=== PATIENT | male | born 1970 | race Hispanic/Latino ===

== ENCOUNTER 2017-03-20 16:58 | Emergency (ER) | payer OTHER ==
[2017-03-20 17:07] VITALS: BP 128/77; PULSE 94; RESP 18; TEMP 98.5; O2SAT 97
--- NOTE | 2017-03-20 17:27 | ED PDOC ---
HPI: CCC, URI, Sore Throat Time Seen by Provider: 03/20/17 17:10 Chief Complaint (Nursing): ENT Problem Chief Complaint (Provider): ENT Problem History Per: Patient History/Exam Limitations: no limitations Have you had recent travel within the past 21 days to any of the following countries: [place], [place], [place] or [place]?: No Onset/Duration Of Symptoms: Days (Two Days) Current Symptoms Are (Timing): Still Present Location Of Pain: Throat Associated Symptoms: Sore Throat. denies: Fever Severity: Mild Additional Complaint(s): 46 y/o male patient presenting to the ED with throat pain. PT states the pain has been ongoing for 2 days and he has not taken any medications for the pain. Denies fever/chills. Past Medical History Reviewed: Historical Data, Nursing Documentation, Vital Signs Vital Signs: Last Vital Signs Temp 98.5 F 03/20/17 17:04 Pulse 94 H 03/20/17 17:04 Resp 18 03/20/17 17:04 BP 128/77 03/20/17 17:04 Pulse Ox 97 03/20/17 17:35 - Medical History PMH: No Chronic Diseases - Surgical History Surgical History: No Surg Hx - Family History Family History: States: No Known Family Hx - Living Arrangements Living Arrangements: With Family - Social History Current smoker - smoking cessation education provided: No Alcohol: Occasional Drugs: Denies - Home Medications Home Medications: Ambulatory Orders Medication Instructions Recorded Azithromycin [Zithromax] 250 mg PO DAILY #6 cap 04/29/15 Prednisone 10 mg PO TID #15 tab 04/29/15 - Allergies Allergies/Adverse Reactions: Allergies Allergy/AdvReac Type Severity Reaction Status Date / Time No Known Allergies Allergy Verified 03/20/17 17:04 Review of Systems ROS Statement: Except As Marked, All Systems Reviewed And Found Negative Constitutional: Negative for: Fever ENT: Positive for: Throat Pain Physical Exam - Reviewed Nursing Documentation Reviewed: Yes Vital Signs Reviewed: Yes - Physical Exam Appears: Positive for: Non-toxic, No Acute Distress Skin: Positive for: Normal Color, Warm ENT: Positive for: Pharyngeal Erythema (tonsils, soft palate) Neck: Positive for: Normal, Painless ROM, Supple Cardiovascular/Chest: Positive for: Regular Rate, Rhythm. Negative for: Murmur Respiratory: Positive for: Normal Breath Sounds. Negative for: Respiratory Distress Neurologic/Psych: Positive for: Alert, Oriented. Negative for: Motor/Sensory Deficits - ECG O2 Sat by Pulse Oximetry: 97 (RA) Pulse Ox Interpretation: Normal Medical Decision Making Medical Decision Making: Time: 1709 Initial impression: Pharyngeal Erythema Initial plan: --Dexamethasone 10MG --Rapid Strep Group A Antigen Strep Negative Scribe Attestation: Documented by Shakira Galaviz acting as a scribe for SALLIE Naylor MD Scribe Attestation: All medical record entries made by the Scribe were at my direction and personally dictated by me. I have reviewed the chart and agree that the record accurately reflects my personal performance of the history, physical exam, medical decision making, and the department course for this patient. I have also personally directed, reviewed, and agree with the discharge instructions and disposition. Disposition - Clinical Impression Clinical Impression: Viral pharyngitis - Patient ED Disposition Is Patient to be Admitted: No Counseled Patient/Family Regarding: Diagnosis, Need For Followup - Disposition Referrals: [facility] [Outside] Disposition: Routine/Home Disposition Time: 19:08 Condition: GOOD Instructions: Pharyngitis (ED)
== END 2017-03-20 19:24 | disposition home or self-care (01) ==
LOC: H.ER 16:58
DX: J02.9 Acute pharyngitis, unspecified (principal)